=== PATIENT | male | born 1970 | race Caucasian/White ===

== ENCOUNTER 2021-10-10 16:22 | Emergency (ER) | payer OTHER ==
[~2021-10-10] VITALS: Ht 172.7 cm; Wt 90.7 kg
[~2021-10-10 16:22] MED LIST: APAP500 PO; HYDROCODONE-AP1 EAC6 PO; SENOKOT-S1 TA1 PO; ZANTAC 150MG T150 MG
[2021-10-10 16:35] VITALS: BP 156/107
== END 2021-10-10 19:07 | disposition left against medical advice (07) ==
LOC: M.ERS 16:22
DX: J02.9 Acute pharyngitis, unspecified (principal); R05.9 Cough, unspecified; Z53.21 Procedure and treatment not carried out due to patient leaving prior to being seen by health care provider